=== PATIENT | male | born 1950 | race Caucasian/White ===

== ENCOUNTER 2019-11-01 10:34 | Inpatient (IN) ==
--- NOTE | 2019-10-02 13:45 | Anesthesiology Consultation ---
Date of Service October 02, 2019 Assessment & Plan (1) Encounter for pre-operative examination: COVID Status: As of 10/01 assessment, patient denies travel to endemic area, known exposure/sick contacts, or symptoms of COVID19. Patient instructed to follow strict social distancing guidelines, wear a mask in public and avoid travel for 14 days prior to surgery. Preoperative COVID19 testing to be completed prior to surgery. Patient made aware to self-isolate as much as possible between COVID testing and surgery. Chart Review Chart Review: Acceptable Risk for Surgery (pending surgeon ordered pcp clearance ([facility]) 10/26) and Patient seen in Pre Admission Testing Teaching & Discussion Instructed NPO after midnight before surgery, except medications with 15 cc of water. Medication instructions provided according to the PAT guidelines. History Surgery Operation Date: 11/01/19 07:00 Proposed Procedures p Right Shoulder Tournier Resurfacing versus Hemiarthroplasty versus Total Shoulder Arthroplasty - Colten Beard DO Height/Weight Height: 5 ft 8 in Weight: 82.3 kg Allergies Allergy/AdvReac Type Severity Reaction Status Date / Time levofloxacin Allergy Severe Rash Verified 09/28/19 13:49 Medications Home Medications Medication Instructions Recorded Confirmed Last Taken hydrochlorothiazide 25 mg PO QAM 09/28/19 09/28/19 Unknown losartan 100 mg PO QAM 09/28/19 09/28/19 Unknown pantoprazole 40 mg PO QAM 09/28/19 09/28/19 Unknown Past Medical History Medical History GERD (gastroesophageal reflux disease) Hypertension Exercise / Class Metabolic Activity II 4-5 Yardwork/Stairs/Walk up hill (Denies CP or SOB with 1 FOS) Past Family History Family History Other No family history of adverse response to anesthesia Past Surgical History Surgical History History of colonoscopy History of esophagogastroduodenoscopy (EGD) History of prostate surgery greenlight laser S/P arthroscopy of shoulder right Past Anesthesia History No Hx of Anesthesia Complications and No Family Hx of Anesthesia Complications History of PONV No Hx of PONV and No Hx of Motion Sickness Social History Smoking Status: Never smoker Do You Dip or Chew Tobacco: No Hx Alcohol Use: Yes Alcohol type: beer alcohol intake frequency: a few times a month Hx Substance Use: No substance use type: does not use Review of Systems Pt denies any recent chest pain, shortness of breath, palpitations, cough, fever or URI. Physical Exam Vital Signs BP: 121/80 P: 61bpm SPO2: 96% RA T: 98.6 F R: 16 ENMT Mouth: + dental restorations (few crowns mostly on molars); no chipped teeth and no loose teeth Thyromental Distance: > or= 3.5 Finger Breadths (3.5) Mallampati Class: II Neck normal visual inspection; neck extension not limited Respiratory normal respiratory effort Auscultation: lungs clear to auscultation bilaterally Cardiovascular Rate/Rhythm: regular rate and regular rhythm Heart Sounds: no murmur Extremities: no edema Testing Laboratory Results 10/02/19 14:00 10/02/19 14:00 PT 11.5 Seconds (9.0-12.0) 10/02/19 14:00 INR 1.1 (0.9-1.1) 10/02/19 14:00 APTT 26.6 Seconds (21.0-31.0) 10/02/19 14:00 Hemoglobin A1c 5.1 % (4.5-5.6) 10/02/19 14:00 Urine Color Yellow 10/02/19 14:00 Urine Appearance Clear (Clear) 10/02/19 14:00 Urine pH 7.0 (4.5-7.5) 10/02/19 14:00 Ur Specific [place] 1.009 (1.000-1.030) 10/02/19 14:00 Urine Protein Negative (Negative) 10/02/19 14:00 Urine Glucose (UA) Negative (Negative) 10/02/19 14:00 Urine Ketones Negative (Negative) 10/02/19 14:00 Urine Nitrite Negative (Negative) 10/02/19 14:00 Ur Leukocyte Esterase Negative (Negative) 10/02/19 14:00 Blood Type AB Negative 10/02/19 14:00 Antibody Screen NEGATIVE 10/02/19 14:00 Electrocardiogram Date: 10/02/19 Findings: + SB @ (51bpm) Chest X-Ray Date: 10/02/19 Findings: + NAD
--- NOTE | 2019-10-02 13:50 | PAT Medication Instructions ---
Medication Instructions Date of Service October 02, 2019 Home Medications hydrochlorothiazide 25 mg PO QAM losartan 100 mg PO QAM pantoprazole 40 mg PO QAM DO NOT take the morning of surgery hydrochlorothiazide 25 mg PO QAM losartan 100 mg PO QAM Take morning of surgery With a small sip of water, OTHERWISE NOTHING TO EAT OR DRINK AFTER MIDNIGHT: pantoprazole 40 mg PO QAM Other Notes If you have any questions please call us at [phone] or [phone] or [phone] or [phone]
--- NOTE | 2019-10-02 14:20 | XRay Report ---
XR chest Pre-admission PA/Lat CLINICAL HISTORY: pat COMPARISON STUDY: No previous studies for comparison. FINDINGS: The bones soft tissues and hemidiaphragms are normal. The cardiomediastinal silhouette is n ormal. The lungs are clear. The pulmonary vasculature is normal. IMPRESSION: Negative chest. ACT 112: Negative or not required by law. The above report was generated using voice recognition software. It may contain grammatical, syntax or spelling errors. Electronically signed by: Patrick Argueta M.D. 10/02/2019 2:18 PM
[2019-10-02 14:39] LABS: Estimated Average Glucose 100 mg/dl; Hemoglobin A1C 5.1 % (4.5-5.6)
[2019-10-02 14:42] LABS: INR 1.1 (0.9-1.1); Partial Thromboplastin Time 26.6 Seconds (21.0-31.0); Prothrombin Time 11.5 Seconds (9.0-12.0)
[2019-10-02 14:51] LABS: Appearance Urine Clear (Clear); Bilirubin Urine Negative (Negative); Blood Urine Negative (Negative); Color Urine Yellow; Glucose Urine UA Negative (Negative); Ketones Urine Negative (Negative); Leukocyte Esterase Urine Negative (Negative); Nitrite Urine Negative (Negative); Protein Urine Negative (Negative); Specific Gravity Urine 1.009 (1.000-1.030); Urobilinogen Urine Negative (Negative)
[2019-10-02 14:57] LABS: Basophils % (auto) 0.3 %; Eosinophils % (auto) 1.6 %; Hematocrit (blood only) 44.2 % (42-52); Lymphocytes % (auto) 26.2 %; Mean Corpuscular Hemoglobin 32.3 pg (25-34); Mean Corpuscular Hgb Conc 36.2 g/dL (32-36); Mean Corpuscular Volume 89.1 fL (80-100); Mean Platelet Volume 10.9 fL (7.4-10.4); Neutrophils % (auto) 64.6 %; Platelet Count 241 K/uL (130-400); RDW Coefficient of Variation 12.5 % (11.5-14.5); RDW Standard Deviation 39.9 fL (36.4-46.3); Red Blood Count 4.96 M/uL (4.7-6.1); White Blood Count 9.73 K/uL (4.8-10.8)
[2019-10-02 14:58] LABS: Basophils # (auto) 0.03 K/uL (0-0.2); Eosinophils # (auto) 0.16 K/uL (0-0.5); Immature Granulocytes # (auto) 0.03 K/uL (0.00-0.02); Immature Granulocytes % (auto) 0.3 %; Lymphocytes # (auto) 2.55 K/uL (1.2-3.4); Monocytes # (auto) 0.68 K/uL (0.11-0.59); Neutrophils # (auto) 6.28 K/uL (1.4-6.5)
[2019-10-02 16:04] LABS: Albumin Level 3.8 gm/dl (3.4-5.0); BUN Creatinine Ratio 16.4 (10-20); Calcium 9.3 mg/dl (8.5-10.1); Creatinine Clr Calc Pharmacy 62.5 ml/min; Est GFR (African American) 71.2; Est GFR (Non-African American) 61.4; Potassium 3.6 mmol/L (3.5-5.1)
--- NOTE | 2019-10-03 06:34 | Electrocardiogram Report ---
Test Reason : Blood Pressure : / mmHG Vent. Rate : 051 BPM Atrial Rate : 051 BPM P-R Int : 166 ms QRS Dur : 084 ms QT Int : 430 ms P-R-T Axes : 035 020 011 degrees QTc Int : 396 ms Sinus bradycardia Otherwise normal ECG No previous ECGs available Confirmed by Cm Kulkarni ([id number]) on 10/03/2019 6:33:58 AM Referred By: Colten Beard Confirmed By:Cm Kulkarni
--- NOTE | 2019-10-17 09:35 | History & Physical Report ---
Date of Service October 17, 2019 date of surgery: 11-01-19 Assessment & Plan (1) Arthritis of right shoulder region: discussed his options, He has end stage DJD GH joint, has had both visco and cortisone injections in the past with mixed results, most recent sample visco with no relief. his x-rays were reviewed showing joint space narrowing and osteophyte formation glenohumeral joint. At this point in time, has failed conservative measures and he would like to proceed with right shoulder resu rfacing vs total shoulder replacement at [facility]. The risks and benefits have been discussed including, but not limited to, risk of infection, nerve injury, stiffness, loss of motion, failure to improve, etc. Reasonable outcomes and options of treatment were discussed. An explanation of appropriate alternatives to the procedure that may be advantageous were discussed and their risks and benefits, as well as the risks and benefits of not proceeding with treatment. I offered to answer any additional inquiries concerning the treatment involved. All the patient's questions were answered. The patient is agreeable, understanding of the treatment plan and alternatives, and wishes to proceed with the treatment plan. History of Present Illness Chief Complaint: Right shoulder pain Primary Care Provider: Francois Kiran DO Mr Sinha is a 69 year old male who complains of Right shoulder pain, presents for pre-op evaluation prior to a Right shoulder resurfacing vs total shoulder replacement on 11/01/19 at [facility]. He complains of pain, decreased range of motion, and stiffness in his right shoulder. He states that the symptoms have been chronic and that the symptoms are moderate-severe. The pain is described as aching, sharp and throbbing. The symptoms are aggravated by his ADLs, lifting items and any overhead activities. Prior NSAIDs include IBU, Aleve and Mobic. He has been treated with multiple cortisone injections in the past as well as 2- 3 sample visco intra-articular injections without much relief. At this point, he has failed conservative measures and he would like to proceed with surgical intervention. Allergies Allergy/AdvReac Type Severity Reaction Status Date / Time levofloxacin Allergy Severe Rash Verified 09/28/19 13:49 Home Medications Home Medications Medication Instructions Recorded Confirmed Type hydrochlorothiazide 25 mg PO QAM 09/28/19 09/28/19 History losartan 100 mg PO QAM 09/28/19 09/28/19 History pantoprazole 40 mg PO QAM 09/28/19 09/28/19 History Past Med/Surg History Medical History GERD (gastroesophageal reflux disease) Hypertension Surgical History History of colonoscopy History of esophagogastroduodenoscopy (EGD) History of prostate surgery greenlight laser S/P arthroscopy of shoulder right Family History Other No family history of adverse response to anesthesia Social History Smoking Status: Never smoker Second Hand Exposure: No; Do You Dip or Chew Tobacco: No; Tobacco Cessation Education Requested by Patient: No Hx Alcohol Use: Yes Alcohol type: beer Hx Substance Use: No Preferred Language: Thai Communication Ability: Effective Quality Control Assistant Required: No Beliefs That Will Affect Care: None Current Living Situation: Spouse Other Information That Helps Us Care for You: No Feels Safe at Home: Yes Safety Concerns: Feels Safe At This Time Review of Systems Review of Systems: All systems reviewed & are unremarkable except as noted in HPI & below Constitutional: no fever, no chills and no sweats Respiratory: no cough and no dyspnea Cardiovascular: no chest pain, no dyspnea and no orthopnea Gastrointestinal: no abdominal pain, no nausea and no vomiting Musculoskeletal: as per Subjective / HPI Physical Exam Physical Exam: Ht: 5ft 8in Wt: 82.8kg BP: 120/78 Constitutional: WD/WN, vitals as above no acute distress Respiratory: normal respiratory effort, lungs clear to auscultation no respiratory distress, no labored breathing and does not use accessory muscles Cardiovascular: RRR, no murmur, no edema Gastrointestinal (Abdomen): normal bowel sounds, soft, nontender, no hepatosplenomegaly Musculoskeletal: Shoulder: + effusion (mild swelling shoulder joint), + limited ROM (Active: FF 110, ER/ABD to top of head, IR/ADD to his belt.), + ROM with crepitation, + joint line tenderness (anterior shoulder joint), + Jane's test positive, + Neer's test positive and + Hawkin's test positive; shoulder normal to inspection, no deformity, no skin erythema, no ecchymosis, no scapular winging and drop arm test negative Results & Data Results & Data ([facility]) Laboratory Results Laboratory Results WBC 9.73 K/uL (4.8-10.8) 10/02/19 14:00 RBC 4.96 M/uL (4.7-6.1) 10/02/19 14:00 Hgb 16.0 g/dL (14.0-18.0) 10/02/19 14:00 Hct 44.2 % (42-52) 10/02/19 14:00 MCV 89.1 fL (80-100) 10/02/19 14:00 MCH 32.3 pg (25-34) 10/02/19 14:00 MCHC 36.2 g/dL (32-36) H 10/02/19 14:00 RDW Std Deviation 39.9 fL (36.4-46.3) 10/02/19 14:00 RDW Coeff of [place] 12.5 % (11.5-14.5) 10/02/19 14:00 Plt Count 241 K/uL (130-400) 10/02/19 14:00 MPV 10.9 fL (7.4-10.4) H 10/02/19 14:00 Immature Gran % (Auto) 0.3 % 10/02/19 14:00 Neut % (Auto) 64.6 % 10/02/19 14:00 Lymph % (Auto) 26.2 % 10/02/19 14:00 [place] % (Auto) 7.0 % 10/02/19 14:00 Eos % (Auto) 1.6 % 10/02/19 14:00 Baso % (Auto) 0.3 % 10/02/19 14:00 Neut # (Auto) 6.28 K/uL (1.4-6.5) 10/02/19 14:00 Lymph # (Auto) 2.55 K/uL (1.2-3.4) 10/02/19 14:00 [place] # (Auto) 0.68 K/uL (0.11-0.59) H 10/02/19 14:00 Eos # (Auto) 0.16 K/uL (0-0.5) 10/02/19 14:00 Baso # (Auto) 0.03 K/uL (0-0.2) 10/02/19 14:00 Immature Gran # (Auto) 0.03 K/uL (0.00-0.02) H 10/02/19 14:00 PT 11.5 Seconds (9.0-12.0) 10/02/19 14:00 INR 1.1 (0.9-1.1) 10/02/19 14:00 APTT 26.6 Seconds (21.0-31.0) 10/02/19 14:00 PTT Ratio 1.0 10/02/19 14:00 Sodium 141 mmol/L (136-145) 10/02/19 14:00 Potassium 3.6 mmol/L (3.5-5.1) 10/02/19 14:00 Chloride 105 mmol/L (98-107) 10/02/19 14:00 Carbon Dioxide 29 mmol/L (21-32) 10/02/19 14:00 Anion Gap 7.0 (3-11) 10/02/19 14:00 BUN 20 mg/dl (7-18) H 10/02/19 14:00 Creatinine 1.22 mg/dl (0.6-1.4) 10/02/19 14:00 Est Cr Clr Drug Dosing 62.5 ml/min 10/02/19 14:00 Est GFR ( Amer) 71.2 10/02/19 14:00 Est GFR (Non-Af Amer) 61.4 10/02/19 14:00 BUN/Creatinine Ratio 16.4 (10-20) 10/02/19 14:00 Glucose 94 mg/dl (70-99) 10/02/19 14:00 Estimat Average Glucose 100 mg/dl 10/02/19 14:00 Hemoglobin A1c 5.1 % (4.5-5.6) 10/02/19 14:00 Calcium 9.3 mg/dl (8.5-10.1) 10/02/19 14:00 Albumin 3.8 gm/dl (3.4-5.0) 10/02/19 14:00 Urine Color Yellow 10/02/19 14:00 Urine Appearance Clear (Clear) 10/02/19 14:00 Urine pH 7.0 (4.5-7.5) 10/02/19 14:00 Ur Specific [place] 1.009 (1.000-1.030) 10/02/19 14:00 Urine Protein Negative (Negative) 10/02/19 14:00 Urine Glucose (UA) Negative (Negative) 10/02/19 14:00 Urine Ketones Negative (Negative) 10/02/19 14:00 Urine Blood Negative (Negative) 10/02/19 14:00 Urine Nitrite Negative (Negative) 10/02/19 14:00 Urine Bilirubin Negative (Negative) 10/02/19 14:00 Urine Urobilinogen Negative (Negative) 10/02/19 14:00 Ur Leukocyte Esterase Negative (Negative) 10/02/19 14:00 Blood Type AB Negative 10/02/19 14:00 Antibody Screen NEGATIVE 10/02/19 14:00 Diagnostic Findings Right Shoulder X-ray showing degenerative changes to the glenohumeral joint and AC joint. there is joint space narrowing and osteophyte formation. no acute bony pathology.
[~2019-11-01 10:34] MED LIST: ACETAMINOPHEN 500 MG TAB PO SCH; CEFAZOLIN 2000MG 2,000 MG/15 ML SYR IV SCH; CeleBREX 200 MG CAP PO SCH; FAMOTIDINE 20 MG TAB PO SCH; GABAPENTIN 300 MG CAP PO SCH; LR 15ML/HR IV SCH; METOCLOPRAMIDE HCL 10 MG TABLET PO SCH; MIDAZOLAM HCL 1 MG/ML 2ML VIAL ONE; ONDANSETRON INJ 2 MG/ML 2 ML VIAL ONE; PROPOFOL IV EMULSION 10 MG/ML 20 ML VIAL IV ONE; ROPIVACAINE 0.5% 5 MG/ML 30 ML VIAL ONE; ROPIVACAINE 0.5% HCL/PF 150 MG, BUPIVACAINE 0.5% MPF 30 ML, EPINEPHrine 30MG/30ML (OR U... INFIL SCH; dexAMETHasone 4 MG TAB PO SCH; fentaNYL citrate 100 MCG/2 ML VIAL ONE
--- NOTE | 2019-11-01 10:54 | History & Physical Bridge Note ---
Date of Service November 01, 2019 History & Physical Bridge Note I have examined the patient, reviewed the History & Physical and in the interval since the performance of the History & Physical I have noted the following changes of clinical significance:tournier resurfacing hemiarthroplasty vs total shoulder arthroplasty no changes noted
[2019-11-01] MEDS ORDERED: ROCURONIUM BROMIDE 10 MG/ML 5 ML VIAL IV ONE ×6 (11:36→13:37)
[2019-11-01] MEDS ORDERED: ORTHO JOINT ANESTHETIC ONE (11:43)
[2019-11-01] MEDS ORDERED: BACITRACIN INJ 50,000 UNIT VIAL ONE (11:44)
[2019-11-01] MEDS ORDERED: ONDANSETRON INJ 2 MG/ML 2 ML VIAL IV PRN ×2 (12:04→15:29)
[2019-11-01] MEDS ORDERED: ATROPINE SULFATE 0.1 MG/ML 10ML SYR IV PRN (12:04)
[2019-11-01] MEDS ORDERED: ePHEDrine sulfate 50 MG/ML AMP IV PRN (12:04)
[2019-11-01] MEDS ORDERED: fentaNYL citrate 100 MCG/2 ML VIAL IV PRN (12:04)
[2019-11-01] MEDS ORDERED: LIDOCAINE HCL 2% 2 ML VIAL/AMP(20MG/ML) INFIL ONE (12:54)
[2019-11-01] MEDS ORDERED: GLYCOPYRROLATE 0.2 MG/ML VIAL ONE (13:34)
[2019-11-01] MEDS ORDERED: NEOSTIGMINE METHYLSULFATE 5 MG/5 ML SYR ONE (13:34)
--- NOTE | 2019-11-01 14:06 | Operative Report ---
Post Operative Report Pre & Post Diagnosis Operation Date: 11/01/19 12:20 Pre-Op Diagnosis: RIGHT SHOULDER OSTEOARTHRITIS Post-Op Diagnosis: RIGHT SHOULDER OSTEOARTHRITIS I identified the patient and participated in the time-out.: Yes Procedure Operation Date: 11/01/19 12:20 Actual Procedures p Right Shoulder Resurfacing(Right) tournier resurfacing 50 mm x 16 mm- Colten Beard DO Surgeon Colten Beard DO Ultrasound Technologist SUNNY Lin Estimated Blood Loss 20 Findings Consistent with Post-Op Diagnosis Patient presents with DJD right shoulder with osteophytes on the humeral head articular cartilage in the glenoid was otherwise in good condition with glenoid being well preserved the resurfacing of the humeral head was performed for large grade 4 chondral surfaces involving the entire humeral head Specimens Bone and cartilage Drains Medium bore Hemovac Anesthesia Type General Regional Complications none Disposition Accompanied Patient To Recovery: No Disposition: Recovery Room Indications Patient presents for right shoulder hemiarthroplasty after failed attempted conservative management clinic injections corticosteroid injections physical therapy relative rest activity modification the above intraoperative findings were noted Description of Procedure After proper prepping draping the right shoulder region a anterior deltopectoral interval incision was made the cephalic vein was identified was retracted laterally with the deltoid dissection carried through the subcutaneous tissue to the region of the anterior aspect of the subscapularis attachment subscapularis was carefully reflected off the tuberosity with special attention paid to protect the biceps tendon at all times the capsule and subscapularis were reflected and retracted medialward the humeral head was then evaluated special tenses up a pectoral axillary nerve at all times the capsule was released o steophytes were removed the glenoid was inspected and the humeral head was noted to have evidence of eburnated bone humeral head was sized at 850 x 16 gave anatomic reconstruction associated wounds irrigated with copious amounts of sterile saline solution the humeral head was reamed the appropriate punches were used number three #5 FiberWire's were placed for reattachment subscapularis subsequently the shoulder was trialed gave excellent stability the final component was placed tamped into position had excellent fit subsequently was irrigated copious muscle sterile saline solution the subscapularis was repaired back to bed of bleeding bone the deltopectoral interval as well as rotator interval were both repaired in a medium relax place and deep wound subcu closed 2-0 Vicryl skin was closed with a subcutaneous 3-0 suture sterile compressive dressing was placed to play a sterile shoe shoulder immobilizer is also placed the patient was socially taken recovery stable condition to be neurovascularly intact please note SUNNY Johnson was necessary for prepping draping retraction wound closure subcu and skin was necessary for the case I attest to the content of the Intraoperative Record and any orders documented therein. Any exceptions are noted below.
--- NOTE | 2019-11-01 15:03 | XRay Report ---
XR shoulder RT min 2V routine CLINICAL HISTORY: Post shoulder surgery postoperative evaluation COMPARISON: None. DISCUSSION: Anatomic alignment post right shoulder arthroplasty. Good contact between prosthetic and underlying bone. Minimal lucency superior aspect of the humeral prosthetic in relation underlying bon e. This is not seen in its inferior portion. Expected postoperative soft tissue change IMPRESSION: Anatomic alignment post right shoulder arthroplasty. ACT 112: Negative or not required by law. The above report was generated using voice recognition software. It may contain grammatical, syntax or spelling errors. Electronically signed by: Patrick Argueta M.D. 11/01/2019 3:01 PM
--- NOTE | 2019-11-01 15:12 | Anesthesiology Progress Note ---
Date of Service November 01, 2019 Anesthesia Post Procedure Vital Signs Vital Signs: Temp Pulse Pulse Resp BP Pulse Ox 11/01/19 15:00 50 L 19 132/83 100 11/01/19 14:50 51 L 19 139/85 99 11/01/19 14:40 54 L 23 143/90 H 99 11/01/19 14:34 35.8 C L 61 18 143/86 H 99 11/01/19 11:08 36.7 C 48 L 16 156/99 H 98 Pain Intensity Right Shoulder: Pain Intensity: 4 Transfer of Care Handoff Completed per policy Notes Mental Status: alert / awake / arousable and participated in evaluation Patient Amnestic to Procedure: Yes Nausea / Vomiting: adequately controlled Pain: adequately controlled Airway Patency, RR, SpO2: stable & adequate BP & HR: stable & adequate Hydration State: stable & adequate Anesthetic Complications: no major complications apparent and Pt Satisfied with anesthetic care
[2019-11-01] MEDS ORDERED: METOCLOPRAMIDE HCL INJ 5 MG/ML 2 ML VIAL IV PRN (15:29)
[2019-11-01] MEDS ORDERED: bisacodyL 10 MG SUPP PR PRN (15:29)
[2019-11-01] MEDS ORDERED: OXYCODONE HCL IR 5 MG TAB (IMMEDIATE RELEASE) PO PRN (15:29)
[2019-11-01] MEDS ORDERED: HYDROmorphone INJ 1 MG/ML SYRINGE IV PRN (15:29)
[2019-11-01] MEDS ORDERED: NALOXONE HCL 0.4 MG/1 ML VIAL/CARP IV PRN (15:29)
[2019-11-01] MEDS ORDERED: MAGNESIUM HYDROXIDE SUSP 30 ML UDC PO PRN (15:29)
[2019-11-01] MEDS: SODIUM CHLORIDE 0.9% 1000ML 1,000 ML IV SCH (15:47)
[2019-11-01] MEDS: KETOROLAC TROMETHAMINE 15 MG/ML VIAL IV SCH ×2 (15:47→21:36)
[2019-11-01] MEDS: CEFAZOLIN 2000MG 2,000 MG/15 ML SYR IV SCH (20:44)
[2019-11-01] MEDS: ACETAMINOPHEN 500 MG TAB PO SCH (20:44)
[2019-11-01] MEDS: ASPIRIN 81 MG ECTAB PO SCH (20:45)
[2019-11-01] MEDS: DOCUSATE SODIUM 100 MG CAP PO SCH (20:45)
[2019-11-01] MEDS ORDERED: SENNA 8.6 MG TAB PO SCH (21:00)
[2019-11-02] MEDS ORDERED: Nursing to Pharmacy Communication SCH (02:15)
[2019-11-02] MEDS: SODIUM CHLORIDE 0.9% 1000ML 1,000 ML IV SCH (04:13)
[2019-11-02] MEDS: KETOROLAC TROMETHAMINE 15 MG/ML VIAL IV SCH ×2 (05:14→10:37)
[2019-11-02] MEDS: ACETAMINOPHEN 500 MG TAB PO SCH (05:14)
[2019-11-02] MEDS: CEFAZOLIN 2000MG 2,000 MG/15 ML SYR IV SCH (05:15)
[2019-11-02 06:41] LABS: Basophils # (auto) 0.01 K/uL (0-0.2); Basophils % (auto) 0.1 %; Hematocrit (blood only) 40.8 % (42-52); Hemoglobin 14.5 g/dL (14.0-18.0); Immature Granulocytes # (auto) 0.06 K/uL (0.00-0.02); Immature Granulocytes % (auto) 0.4 %; Lymphocytes # (auto) 1.38 K/uL (1.2-3.4); Lymphocytes % (auto) 8.3 %; Mean Corpuscular Hemoglobin 31.7 pg (25-34); Mean Corpuscular Hgb Conc 35.5 g/dL (32-36); Mean Corpuscular Volume 89.3 fL (80-100); Mean Platelet Volume 11.5 fL (7.4-10.4); Monocytes # (auto) 0.52 K/uL (0.11-0.59); Monocytes % (auto) 3.1 %; Neutrophils # (auto) 14.58 K/uL (1.4-6.5); Neutrophils % (auto) 88.1 %; Platelet Count 181 K/uL (130-400); RDW Coefficient of Variation 12.8 % (11.5-14.5); RDW Standard Deviation 41.1 fL (36.4-46.3); Red Blood Count 4.57 M/uL (4.7-6.1); White Blood Count 16.55 K/uL (4.8-10.8)
--- NOTE | 2019-11-02 07:07 | Orthopedic Progress Note ---
Date of Service November 02, 2019 Assessment & Plan (1) History of arthroplasty of right shoulder: POD #1 s/p right shoulder resurfacing pt/ot dvt proph with [facility]/SCD/ASA plan for d/c home with OPPT after PT today Admission and Anticipated Discharge Date Admission Date: November 01, 2019 Subjective POD #1 s/p Right shoulder resurfacing Review of Systems Constitutional: no fever, no chills and no sweats Respiratory: no cough and no dyspnea Cardiovascular: no chest pain and no dyspnea Gastrointestinal: no abdominal pain, no nausea and no vomiting Physical Exam Physical Exam: Vital Signs Temp Pulse Pulse Resp BP Pulse Ox 11/02/19 03:18 36.6 C 50 L 16 135/83 96 11/01/19 23:04 36.4 C L 48 L 16 143/81 H 96 11/01/19 17:30 36.5 C 49 L 16 124/76 97 11/01/19 16:32 36.4 C L 44 L 16 127/79 99 11/01/19 16:02 36.4 C L 49 L 16 128/77 99 11/01/19 15:29 36.8 C 50 L 14 139/76 100 11/01/19 15:10 48 L 19 130/81 99 11/01/19 15:00 50 L 19 132/83 100 11/01/19 14:50 51 L 19 139/85 99 11/01/19 14:40 54 L 23 143/90 H 99 11/01/19 14:34 35.8 C L 61 18 143/86 H 99 11/01/19 11:08 36.7 C 48 L 16 156/99 H 98 Intake and Output 11/01/19 11/02/19 11/02/19 22:59 06:59 14:59 Intake Total 1580 / 2880 1000 / 2880 Output Total 220 / 420 200 / 420 Balance 1360 / 2460 800 / 2460 Intake: IV 1000 / 1300 Nss 1000ML 1,0 00 ml @ 100 mls/ 1000 / 1000 hr IV .Q10H SC H Rx#:[id number] IV Perioperative 800 / 800 Oral 780 / 780 Output: Urine 200 / 400 200 / 400 Estimated Blood Loss 20 Other: # Unmeasured Voi ds 1 Weight 82 kg Constitutional: WD/WN, vitals as above no acute distress Musculoskeletal: Right shoulder: NVDI, Rad +2, sensation intact to light touch, rad/med/uln nerves intact Results & Data ([facility]) Vital Signs (Past 12 Hours) Vital Signs Temp Pulse Resp BP Pulse Ox 11/02/19 03:18 36.6 C 50 L 16 135/83 96 11/01/19 23:04 36.4 C L 48 L 16 143/81 H 96 Laboratory Results Laboratory Results WBC 16.55 K/uL (4.8-10.8) H 11/02/19 06:14 RBC 4.57 M/uL (4.7-6.1) L 11/02/19 06:14 Hgb 14.5 g/dL (14.0-18.0) 11/02/19 06:14 Hct 40.8 % (42-52) L 11/02/19 06:14 MCV 89.3 fL (80-100) 11/02/19 06:14 MCH 31.7 pg (25-34) 11/02/19 06:14 MCHC 35.5 g/dL (32-36) 11/02/19 06:14 RDW Std Deviation 41.1 fL (36.4-46.3) 11/02/19 06:14 RDW Coeff of [place] 12.8 % (11.5-14.5) 11/02/19 06:14 Plt Count 181 K/uL (130-400) 11/02/19 06:14 MPV 11.5 fL (7.4-10.4) H 11/02/19 06:14 Immature Gran % (Auto) 0.4 % 11/02/19 06:14 Neut % (Auto) 88.1 % 11/02/19 06:14 Lymph % (Auto) 8.3 % 11/02/19 06:14 [place] % (Auto) 3.1 % 11/02/19 06:14 Eos % (Auto) 0.0 % 11/02/19 06:14 Baso % (Auto) 0.1 % 11/02/19 06:14 Neut # (Auto) 14.58 K/uL (1.4-6.5) H 11/02/19 06:14 Lymph # (Auto) 1.38 K/uL (1.2-3.4) 11/02/19 06:14 [place] # (Auto) 0.52 K/uL (0.11-0.59) 11/02/19 06:14 Eos # (Auto) 0.00 K/uL (0-0.5) 11/02/19 06:14 Baso # (Auto) 0.01 K/uL (0-0.2) 11/02/19 06:14 Immature Gran # (Auto) 0.06 K/uL (0.00-0.02) H 11/02/19 06:14 PT 11.5 Seconds (9.0-12.0) 10/02/19 14:00 INR 1.1 (0.9-1.1) 10/02/19 14:00 APTT 26.6 Seconds (21.0-31.0) 10/02/19 14:00 PTT Ratio 1.0 10/02/19 14:00 Sodium 141 mmol/L (136-145) 10/02/19 14:00 Potassium 3.6 mmol/L (3.5-5.1) 10/02/19 14:00 Chloride 105 mmol/L (98-107) 10/02/19 14:00 Carbon Dioxide 29 mmol/L (21-32) 10/02/19 14:00 Anion Gap 7.0 (3-11) 10/02/19 14:00 BUN 20 mg/dl (7-18) H 10/02/19 14:00 Creatinine 1.22 mg/dl (0.6-1.4) 10/02/19 14:00 Est Cr Clr Drug Dosing 62.5 ml/min 10/02/19 14:00 Est GFR ( Amer) 71.2 10/02/19 14:00 Est GFR (Non-Af Amer) 61.4 10/02/19 14:00 BUN/Creatinine Ratio 16.4 (10-20) 10/02/19 14:00 Glucose 94 mg/dl (70-99) 10/02/19 14:00 Estimat Average Glucose 100 mg/dl 10/02/19 14:00 Hemoglobin A1c 5.1 % (4.5-5.6) 10/02/19 14:00 Calcium 9.3 mg/dl (8.5-10.1) 10/02/19 14:00 Albumin 3.8 gm/dl (3.4-5.0) 10/02/19 14:00 Urine Color Yellow 10/02/19 14:00 Urine Appearance Clear (Clear) 10/02/19 14:00 Urine pH 7.0 (4.5-7.5) 10/02/19 14:00 Ur Specific [place] 1.009 (1.000-1.030) 10/02/19 14:00 Urine Protein Negative (Negative) 10/02/19 14:00 Urine Glucose (UA) Negative (Negative) 10/02/19 14:00 Urine Ketones Negative (Negative) 10/02/19 14:00 Urine Blood Negative (Negative) 10/02/19 14:00 Urine Nitrite Negative (Negative) 10/02/19 14:00 Urine Bilirubin Negative (Negative) 10/02/19 14:00 Urine Urobilinogen Negative (Negative) 10/02/19 14:00 Ur Leukocyte Esterase Negative (Negative) 10/02/19 14:00 Blood Type AB Negative 10/02/19 14:00 Antibody Screen NEGATIVE 10/02/19 14:00 Diagnostic Findings XR shoulder RT min 2V routine CLINICAL HISTORY: Post shoulder surgery postoperative evaluation COMPARISON: None. DISCUSSION: Anatomic alignment post right shoulder arthroplasty. Good contact between prosthetic and underlying bone. Minimal lucency superior aspect of the humeral prosthetic in relation underlying bone. This is not seen in its inferior portion. Expected postoperative soft tissue change IMPRESSION: Anatomic alignment post right shoulder arthroplasty.
[2019-11-02 07:19] LABS: BUN Creatinine Ratio 17.2 (10-20); Calcium 8.5 mg/dl (8.5-10.1); Est GFR (Non-African American) 58.6
[2019-11-02] MEDS: ASPIRIN 81 MG ECTAB PO SCH (08:40)
[2019-11-02] MEDS: DOCUSATE SODIUM 100 MG CAP PO SCH (08:40)
[2019-11-02] MEDS ORDERED: MULTIVITAMIN TAB PO SCH (09:00)
[2019-11-02] MEDS ORDERED: PANTOprazole 40 MG TAB PO SCH (09:00)
[2019-11-02] MEDS ORDERED: LOSARTAN POTASSIUM 50 MG TAB PO SCH (09:00)
--- NOTE | 2019-11-02 11:51 | Discharge Summary ---
Date of Service date of discharge: November 02, 2019 date of admission: 11/02/19 Admission HPI Per Admitting Provider Mr Sinha is a 69 year old male who complains of Right shoulder pain, presents for pre-op evaluation prior to a Right shoulder resurfacing vs total shoulder replacement on 11/01/19 at [facility]. He complains of pain, decreased range of motion, and stiffness in his right shoulder. He states that the symptoms have been chronic and that the symptoms are moderate-severe. The pain is described as aching, sharp and throbbing. The symptoms are aggravated by his ADLs, lifting items and any overhead activities. Prior NSAIDs include IBU, Aleve and Mobic. He has been treated with multiple cortisone injections in the past as well as 2- 3 sample visco intra-articular injections without much relief. At this point, he has failed conservative measures and he would like to proceed with surgical intervention. Admission Exam Per Admitting Provider see H&P Principal Diagnosis right shoulder glenohumeral arthritis Discharge Exam Vital Signs Temp 36.7 C 11/02/19 07:24 Pulse 50 L 11/02/19 07:24 Resp 16 11/02/19 07:24 BP 128/76 11/02/19 07:24 Pulse Ox 95 11/02/19 07:24 Intake & Output 11/01/19 11/02/19 11/02/19 18:59 06:59 18:59 Intake Total 1100 / 2880 1780 / 2880 Output Total 20 / 420 400 / 420 Balance 1080 / 2460 1380 / 2460 Weight 82 kg 82 kg Intake: IV 300 / 1300 1000 / 1300 Lr 1,000 ml @ 15 mls/hr IV . 300 / 300 Q24H LUAN Rx#:[id number] Nss 1000ML 1,000 ml @ 100 mls/ 1000 / 1000 hr IV .Q10H LUAN Rx#:[id number] IV Perioperative 800 / 800 Oral 780 / 780 Output: Urine 400 / 400 Estimated Blood Loss Other: # Unmeasured Voids 1 Constitutional WD/WN, vitals as above no acute distress Musculoskeletal right shoulder: NVDI, incision clean and dry, no drainage. full painless ROM hand/wrist elbow Discharge Data Allergies Allergy/AdvReac Type Severity Reaction Status Date / Time levofloxacin Allergy Severe Rash Verified 11/01/19 11:17 Consultations 11/01/19 15:29 Consult Case Management - Discharge Planning Routine Procedures Performed Operation Date: 11/01/19 12:20 Actual Procedures p Right Shoulder Resurfacing(Right) - Colten Beard DO Ordered Studies 11/01/19 05:00 US - OR guided needle placemen Routine Hospital Course (1) History of arthroplasty of right shoulder: POD #1 s/p right shoulder resurfacing pt/ot dvt proph with [facility]INO/SCD/ASA plan for d/c home with OPPT after PT today Total Time Total Time Spent Total Time Spent (In Minutes): 20 Total Time Includes: Examination of the Patient, Discharge Planning and Medication Reconciliation Discharge Plan Discharge Items Patient Disposition: Home - Self-Care Reason For Visit: RIGHT SHOULDER OSTEOARTHRITIS Discharge Diagnosis: right shoulder resurfacing Condition on Discharge: Good Activity: Per Instructions section Lifting: Wait until after follow-up appointment Non-emergency contact: Surgeon Call non-emergency contact if: you have any medication questions, your temperature is above 101, your wound has increased redness, your wound has increased drainage and your wound pain has increased Follow-up/Referrals: Francois Kiran DO [Primary Care Provider] - Diet: Regular Addtl Attending Provider Instructions: ACTIVITY RECOMMENDATIONS: SELF CARE INSTRUCTIONS AFTER SHOULDER RESURFACING A. You may do daily exercises as taught in physical therapy while in hospital. No lifting with the operative arm. Please schedule your outpatient physical therapy appointment to begin within 2-3 days after leaving the hospital. Specific restrictions will be written on your physical therapy prescription that is provided to you. B. You are to wear your sling/immobilizer at all times EXCEPT when performing your daily exercises, participating in physical therapy and for hygiene purposes. C. You may perform dry, daily dressing changes. Please keep your incision covered. You may shower 48 hours after surgery. Do not apply soap or any ointment/lotions directly over incision. Do not soak incision in bath tub/swimming pool. D. You may use ice as needed to operative shoulder. SPECIAL CARE INSTRUCTIONS: MEDICATION INSTRUCTIONS: *It is recommended you take Aspirin 81mg twice a day for four weeks post-op. VERY IMPORTANT TO READ AND REVIEW A. There are a few signs you need to watch for after you are home. Call [facility] at [phone] if you experience any of the followin. Increased severe shoulder pain. Some pain is expected especially when you exercise. 2. Increased swelling in you shoulder or arm; pain or swelling in either upper extremity. 3. Any fluid drainage from the incision. 4. Shortness of breath or chest pain. B. Please call [facility] at [phone] if you have any questions or concerns about your operation or recovery. C. Call your physician if: 1. Temperature is greater than 101 degrees (F). 2. Pain is not relieved by prescribed pain medications. 3. Increase drainage or redness from incision. 4. Unanswered questions or concerns. DERMABOND Prineo- This is a mesh tape dressing that is covered with glue. It should remain in place until the incision is properly healed, usually 10-14 days. This dressing is designed to naturally slough off. You may trim the excess mesh tape as it peels off. Incision may be briefly wet in a shower. Dry immediately by blotting with a clean, dry towel. Do not bath or swim until instructed by your doctor. Do not scratch, rub, or pick at the dressing. Do not apply any topical ointments or lotions until dressing is completely removed and/or instructed by your doctor. There may be a small piece of suture material at one end of your incision. Do not pull or trim this. If it is bothersome or catching on clothing, you may cover it with a band-aid. FOLLOW UP VISIT: Please call [facility] at [phone] to schedule a follow up appointment with Dr. Beard or his PA in 12-14 days from your surgery date. Pending Studies at Discharge: No Stand-Alone Forms: My [facility], Opioid Pain Management, Smoking Cessation Medications and DC Order Prescriptions: New celecoxib [Celebrex] 200 mg Capsule 200 mg PO BID 30 Days Qty: 60 RF: 0 aspirin 81 mg Tablet,Delayed Release (Dr/Ec) 81 mg PO BID 30 Days Qty: 60 RF: 0 acetaminophen 500 mg Tablet 1,000 mg PO Q8 21 Days Qty: 126 RF: 0 oxycodone 5 mg Tablet 5 - 10 mg PO Q6H PRN (Reason: pain) Qty: 30 RF: 0 docusate sodium 100 mg Capsule 100 mg PO BID 10 Days Qty: 20 RF: 0 cefadroxil 500 mg capsule 500 mg PO BID 7 Days Qty: 14 RF: 0 Continued pantoprazole 40 mg Tablet,Delayed Release (Dr/Ec) 40 mg PO QAM RF: 0 hydrochlorothiazide 25 mg Tablet 25 mg PO QAM RF: 0 losartan 100 mg Tablet 100 mg PO QAM RF: 0 Discharge Orders: Discharge Order (Routine); Ordered 11/02/19 Ordered By: Patrick Whyte/Other Patient Handouts: Preventing Deep Vein Thrombosis Admission Data Admit Date/Time: 11/01/19 14:19 Attending Provider: Colten Beard Admit Provider: Colten Beard Primary Care Provider: Francois Kiran Other Interventions: Discharge Summary Assessment (RN) Last Done: 11/02/19 09:54
[2019-11-02] MEDS ORDERED: CeleBREX 200 MG CAP PO SCH (21:00)
== END 2019-11-02 12:25 | disposition home or self-care (01) | DRG 508 ==
LOC: ASU 10:34 → 3E 14:19